=== PATIENT | female | born 1990 | race Hispanic/Latino ===

== ENCOUNTER → 2016-04-24 | Outpatient (CLI) | payer OTHER ==
--- OUTSIDE RECORDS SUMMARY | 2016-04-24 13:35 | XMS REPORT ---
Author Author KARINE ROBBINS [facility] eClinicalWorks Address Unknown Phone Unavailable Care Team Providers Care Set Designer Name Role Phone KARINE ROBBINS CP Unavailable Allergies, Adverse Reactions, Alerts Substance Reaction Event Type N.K.D.A. Info Not Available Non Drug Allergy Problems Problem Type Condition Code Onset Dates Condition Status Problem Chronic nasal congestion R09.81 Active Assessment Chronic nasal congestion R09.81 Active Problem Chronic maxillary sinusitis J32.0 Active Medications Medication Code System Code Instructions Start Date End Date Status Dosage Doxycycline Hyclate [facility] [address]-00 100 MG Orally every 12 hrs September 25, 2015 October 16, 2015 1 capsule Diflucan [facility] [address]-76 100 MG Orally Once a day October 16, 2015 Oct 30, 2015 1 tablet Pseudoephedrine HCl ER [facility] [address]-11 120 MG Orally every 12 hrs September 1 tablet as needed Flonase [facility] [address]-33 50 MCG/ACT Nasally twice a day x 2 weeks then daily 1 spray in each nostril Zyrtec Allergy [facility] [address]-78 10 mg Orally Once a day October 16, 2015 Mar 14, 2016 1 tablet Procedures Procedure Coding System Code Date Office Visit, Est Pt., Level 4 CPT-4 59253 October 16, 2015 Vital Signs Date/Time: October 16, 2015 Cardiac Monitoring Heart Rate 70 bpm Weight 138.0 lbs Height 4'11" in BMI 27.87 Index Blood Pressure Diastolic 76 mmHg Blood Pressure Systolic 106 mmHg Results No Known Results Summary Purpose eClinicalWorks Submission
--- NOTE | 2016-04-24 15:04 | Diagnostic Imaging Report ---
PROCEDURE: CT sinuses without contrast TECHNIQUE: Multiple contiguous axial images were obtained through the sinuses without the use of intravenous contrast. Coronal and sagittal reformations were then performed. INDICATION: Chronic nasal congestion. COMPARISON: None. FINDINGS: Moderate mucosal thickening in the right maxillary sinus. There is a soft tissue mass in the posterior nasal cavity measuring approximately 2.4 x 2.4 x 2.0 cm that appears to be originating from the inferior or middle right turbinate. The ostiomeatal units and frontal recesses are patent. Midline nasal septum. No maxillary periapical lucencies. The temporomandibular joints are unremarkable. IMPRESSION: 1. Soft tissue mass in the posterior nasal cavity, possibly representing a polyp, measuring up to 2.4 cm. This appears to be originating from the right side, possibly the right inferior or middle turbinate. 2. Moderate mucosal thickening in the medial right maxillary sinus. Dictated by: Dictated on workstation # [id number]
== END ==
LOC: RAD 13:31
PROVIDERS: ATTEND Nurse Practitioner Family
DX: J32.0 Chronic maxillary sinusitis (principal); R09.81 Nasal congestion
CPT/HCPCS: 70486